=== PATIENT | male | born 1950 | race Caucasian/White ===

== ENCOUNTER 2020-02-26 17:27 | Inpatient (IN) ==
--- NOTE | 2020-02-26 17:44 | ERNOTE ---
Head Injury HPI - Narrative Date of Service: 02/26/20 - General Injury to: other - No injury. Has multitude of complaints. Time Seen by Provider: 02/26/20 17:30 Source: patient - Immun/Allergies/Home Medications Immunization: IMMUNIZATION HX Immunizations Up to Date No History of Influenza Vaccine No Hx Pneumococcal Vaccination No Allergies/Adverse Reactions: Allergies Allergy/AdvReac Type Severity Reaction Status Date / Time No Known Allergies Allergy Unverified 02/26/20 17:36 Home Medications: HOME MEDICATIONS NK 02/26/20 [Last Taken Unknown] - Pain Score Pain Score #1 Pain Score: 9 - History of Present Illness Narrative: 69 yr old with history of diabetes mellitus, erectile dysfunction, diabetic neuropathy, HLD and tobacco use presents with multiple complaints. Reports left sided neck pain for the past 4 days. States he awakened with this and originally thought he had slept wrong. However, this has progressively worsened. Rates his pain 9/10. Reports decreased ROM due to pain. Reports associated general weakness, fatigue, SOB with walking, headache, nausea and vomiting. Reports multiple emesis last nght. 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 Traveled to [place] by air 3 weeks ago. He was seen by [facility] yesterday and diagnosed with acute neck pain thought to be of musculoskeletal origin. He reports he is feeling much worse and is concerned about the possibility of meningitis. He does not take any medications for his diabetes because he doesn't like how they made him feel. Occurred: other - 4 days Method of Injury: Reports: unknown, other - woke with Associated Symptoms: Reports: shortness of breath - with walking , neck pain, weakness, loss of appetite, nausea, vomiting. Denies: fever/chills Review of Systems - Review of Systems Constitutional: Present: weakness, fatigue, decreased activity level. Absent: fever, chills EYE: Present: no symptoms reported ENT: Present: no symptoms reported Respiratory: Present: shortness of breath - with ambulation . Absent: cough, wheezing Cardiology: Absent: chest pain Gastrointestinal/Abdominal: Present: nausea, vomiting, eating less, drinking less Genitourinary: Absent: frequency, pain, dysuria Musculoskeletal: Present: muscle pain - Generalized muscle aching , neck pain - left sided Skin: Present: no symptoms reported Neurological: Present: headache, weakness Endocrine: Present: no symptoms reported Hematologic/Lymphatic: Present: no symptoms reported Psych: Present: anxiety All Other Systems: All systems neg except as marked Medical History (Last Updated 02/26/20 @ 21:16 by MARCELINA Crowe) Erectile dysfunction Hyperlipemia Neuropathy, lumbosacral plexus Type 2 diabetes mellitus Surgical History: Surgical History (Last Updated 02/26/20 @ 21:17 by MARCELINA Crowe) History of appendectomy History of back surgery History of laminectomy Hx of tonsillectomy Family History: Family History (Last Reviewed 02/26/20 @ 18:20 by MARCELINA Crowe) Other No pertinent family history Social History: (Last Reviewed 02/26/20 @ 18:20 by MARCELINA Crowe) Tobacco: Smoking Status: Current some day smoker tobacco type: cigars Alcohol: alcohol intake frequency: holiday/special occasion Substance Use: substance use type: does not use Physical Exam - Physical Exam General Appearance: Present: wd/wn, alert, no apparent distress Head Exam: Present: normal inspection, no evidence of injury Eye Exam: Normal inspection: bilateral, PERRL: bilateral, EOMI: bilateral Ears, Nose, Throat: Present: normal ENT inspection, normal pharynx, dry mucous membranes Neck: Present: tender lateral - tenderness to the paraspinal muscles on the left side, other - ROM decreased in all directions. No meningeal signs. Brudinzki and Kernig's signs negative Respiratory: Present: no respiratory distress, normal breath sounds, no accessory muscle use, lungs clear Cardiovascular/Chest: Present: no murmur, normal peripheral pulses, tachycardia Gastrointestinal/Abdominal: Present: normal bowel sounds, nontender, nond istended, soft Back Exam: Present: normal inspection, normal range of motion Extremity Exam: Present: normal inspection, non-tender, normal range of motion, no edema Neurological Exam: Present: alert, oriented, normal mood/affect, no motor/sensory deficits Skin Exam: Present: normal color, warm/dry Progress - Results and Orders Patient's Lab Results:: I have reviewed the patient's lab results. Results and Orders: Laboratory Tests 02/26/20 02/26/20 18:13 18:13 WBC 10.8 H RBC 4.96 Hgb 15.3 Hct 45.5 Plt Count 205 Immature Gran % (Auto) 0.70 H Immature Gran # (Auto) 0.08 H Neutrophils % 85.5 H Lymphocytes % 2.9 L Monocytes % 10.7 H Eosinophils % 0.0 Basophils % 0.2 Nucleated RBC % 0.0 Neutrophils # 9.3 H Lymphocytes # 0.31 L Monocytes # 1.2 H Absolute Basophils 0.0 Influenza Type A Ag Negative Influenza Type B Ag Negative Laboratory Tests 02/26/20 02/26/20 18:13 18:13 Sodium 133 Potassium 4.5 Chloride 96 L Carbon Dioxide 21.2 L Anion Gap 20.3 H BUN 22 Creatinine 1.30 Est GFR (Non-Af Amer) 58 L Random Glucose 375 H Lactic Acid, Venous 1.7 Calcium 9.5 Total Bilirubin 0.5 AST 10 ALT 19 Alkaline Phosphatase 79 Total Protein 7.9 Albumin 3.3 L Laboratory Tests 02/26/20 18:13 C-Reactive Prot, Quant 16.5 H Laboratory Tests 02/26/20 18:54 pCO2 31.4 L pO2 72.2 L HCO3 15.1 L Total CO2 16.1 L Base Excess -10.1 L ABG pH 7.30 L ABG O2 Sat (Measured) 93.3 L Laboratory Tests 02/26/20 20:22 Urine Color Yellow Urine Appearance Clear Urine pH 6.0 Ur Specific [place] 1.025 Urine Protein 30 H Urine Glucose (UA) >=1000 H Urine Ketones Large Urine Blood 25 H Urine Nitrate Negative Urine Bilirubin 1 H Urine Ictotest Negative Prot Sulfosalicylic Acd 1+ Urine Urobilinogen Normal Ur Leukocyte Esterase Negative Urine RBC 0-5 Urine WBC None seen Ur Epithelial Cells 0-5 Urine Bacteria None seen Urine Culture Comments No culture indicated Laboratory Tests 02/26/20 19:45 Chlamy pneumoniae PCR Not detected Adenovirus (PCR) Not detected B. pertussis DNA (PCR) Not detected Coronavirus OC43 (PCR) Not detected Coronavirus HKU1 (PCR) Not detected Coronavirus 229E (PCR) Not detected Coronavirus NL63 (PCR) Not detected Human Metapneumovir PCR Not detected Influenza A (H1) PCR Not detected Influenza A (H1N1) PCR Not detected Influenza A (H3) PCR Not detected Influenza B (RT-PCR) Not detected M. pneumoniae (PCR) Not detected Parainfluenza 1 (PCR) Not detected Parainfluenza 2 (PCR) Not detected Parainfluenza 3 (PCR) Not detected Parainfluenza 4 (PCR) Not detected RSV (PCR) Not detected Rhinovirus (PCR) Not detected Laboratory Tests 02/26/20 21:10 Sodium 135 Potassium 4.4 Chloride 101 Carbon Dioxide 22.4 L Anion Gap 16.0 H BUN 22 Creatinine 1.12 Random Glucose 328 H Calcium 8.7 - Vital Signs Patient's Vital Signs:: I have reviewed the patient's vital signs. Vital Signs: Vital Signs 02/26/20 17:28 Temperature 36.7 C Pulse Rate 116 H Respiratory Rate 18 Blood Pressure 135/90 H O2 Sat by Pulse Oximetry 97 - Progress/Reassessment Chief Complaint: Neck Pain/Injury Progress Note-Subjective: 02/26/20 21:39 Test results reviewed with patient. He is feeling better after the treatment modalities in the ER. Etiology and treatment plan as well as admission discussed. Since he has a possible pending admission I did review with [facility] as to whether they wanted Covid - 19 testing performed. We reviewed his case and he does not meet the criteria to be swabbed. His travel was over two weeks ago. He does not have any significant respiratory symptoms. No cough and although his temp is 37.4 that does not meet the criteria for fever. We also have a cause for his complaints, so he will not be swabbed. Last accu check was 280. Case staffed with Dr. Holland who graciously accepted his care. 02/26/20 22:06 Plan - Plan Plan: Admit to the floor Departure Clinical Impression: DKA (diabetic ketoacidoses) Qualifiers: Diabetes mellitus type: other specified (including UCHE) Diabetes mellitus com plication detail: without coma Qualified Code(s): E13.10 - Other specified diabetes mellitus with ketoacidosis without coma - Departure Disposition: Still a patient Condition: Good Referrals: Fabian Barth MD [Primary Care Provider] -
[2020-02-26] MEDS ORDERED: NORMAL SALINE 1,000 ML IV ONE ×3 (18:04→21:14)
[2020-02-26] MEDS ORDERED: ONDANSETRON HCL/PF 2 MG/ML VIAL IV ONE (18:05)
[2020-02-26] MEDS ORDERED: KETOROLAC TROMETHAMINE 30 MG/ML VIAL IV ONE (18:05)
[2020-02-26 18:19] LABS: Hematocrit 45.5 % (42.0-52.0); Hemoglobin 15.3 gm/dL (13.5-18.0); Mean Cell Volume 91.7 fl (78-100); Mean Corpuscular Hemoglobin 30.8 pg (27-31); Mean Corpuscular Hgb Conc 33.6 g/dl (32-36); Mean Platelet Volume 9.5 fl (8-11.3); Neutrophil # 9.3 K/mm3 (1.3-6.0); Neutrophil % 85.5 % (42-75.0); Platelet Count 205 K/mm3 (150-450); Red Blood Count 4.96 M/mm3 (4.7-6.0); Red Cell Distribution Width 12.2 % (11.5-14.0); White Blood Count 10.8 K/mm3 (4.0-10.5)
[2020-02-26 18:40] LABS: Albumin * 3.3 gm/dl (3.4-5.0); Anion Gap 20.3 mmol/L (6.8-13.8); BUN/Creatinine Ratio 16.9 (9.0-21.6); Bilirubin, Total 0.5 mg/dL (0.0-1.1); Ca. Corrected For Albumin 9.7 mg/dL (8.4-10.2); Calcium * 9.5 mg/dL (7.9-10.9); Carbon Dioxide 21.2 mmol/L (24-32.6); Potassium 4.5 mmol/L (3.4-4.6); Total Protein 7.9 gm/dL (6.2-8.2)
[2020-02-26] MEDS ORDERED: MORPHINE SULFATE 2 MG/ML DISP.SYRIN IV ONE (18:46)
[2020-02-26 18:53] LABS: CRP 16.5 mg/dL (0.0-0.9)
[2020-02-26] MEDS ORDERED: INSULIN REGULAR, HUMAN 100 UNITS/ML VIAL SC ONE ×2 (18:54→20:47)
[2020-02-26 20:27] LABS: Urine Bilirubin 1 mg/dl (NEGATIVE); Urine Blood 25 /ul (NEGATIVE); Urine Ketone Large mg/dL (NEGATIVE); Urine Nitrite Negative (NEGATIVE); Urine Protein 30 mg/dL (NEGATIVE); Urine Specific Gravity 1.025 SP.GR. (1.005-1.030); Urine Urobilinogen Normal (NORMAL)
[2020-02-26 20:46] LABS: Urine Appearance Clear (CLEAR); Urine Color Yellow; Urine WBC None Seen /hpf (0-5)
[2020-02-26 20:47] LABS: Urine Bacteria None Seen; Urine RBC 0-5 /hpf (0-5)
[2020-02-26 21:25] LABS: BUN/Creatinine Ratio 19.6 (9.0-21.6); Calcium * 8.7 mg/dL (7.9-10.9); Carbon Dioxide 22.4 mmol/L (24-32.6); Estimated Creat Clear 70.3; Potassium 4.4 mmol/L (3.4-4.6)
[2020-02-26] MEDS ORDERED: INSULIN REGULAR, HUMAN 100 UNITS in NORMAL SALINE 100 ML IV PRN ×2 (21:59)
--- NOTE | 2020-02-26 23:05 | HP ---
Chief Complaint - Chief Complaint Date of Service: 02/26/20 Time of Service: 23:04 Chief Complaint: Neck pain, nausea with vomiting History of Present Illness: Gee is a 69 yo male with PMH of DMII that presents to the [facility] ER with reports of neck pain, fatigue, nausea, and vomiting. He reports for the last week he has been having progressive neck pain with loss of appetite, nausea, and vomiting. He has been doing a lot of traveling lately including [facility] in [place] in December, [place] in January, and [place] earlier this month. He denies any known injury to his neck. He was seen at [facility] recently and diagnosed with neck strain and given muscle relaxers. He reports this has not helped. He denies cough. He reports some shortness of breath in the morning. He admits to diabetes but does not take medication because of side effects. He admits to not eating or drinking well lately. Medical History (Last Reviewed 02/26/20 @ 23:33 by Flores Parsons RN) Erectile dysfunction Hyperlipemia Neuropathy, lumbosacral plexus Type 2 diabetes mellitus Surgical History: Surgical History (Last Reviewed 02/26/20 @ 23:33 by Flores Parsons RN) History of appendectomy History of back surgery History of laminectomy Hx of tonsillectomy Family History: Family History (Last Reviewed 02/26/20 @ 23:33 by Flores Parsons RN) Other No pertinent family history Social History: (Last Reviewed 02/26/20 @ 23:33 by Flores Parsons RN) Tobacco: Smoking Status: Current some day smoker tobacco type: cigars Alcohol: alcohol intake frequency: holiday/special occasion Substance Use: substance use type: does not use Review Of Systems (GEN) - Review of Systems Generalized/Overall Review: Present: Weakness. Absent: Chills, Fever EENTM: Present: No Symptoms Reported Respiratory: Present: Shortness of Breath. Absent: Cough Cardiac: Absent: Chest Pain, Edema Abdominal: Present: Nausea, Vomiting Genitourinary: Present: No Symptoms Reported Musculoskeletal: Present: Neck Pain. Absent: Joint Pain Neurological: Absent: Headache, Numbness Skin: Absent: Lesions, Rash Endocrine: Absent: Intolerance to Cold, Intolerance to Heat Immunizations: IMMUNIZATION HX Immunizations Up to Date No History of Influenza Vaccine No Hx Pneumococcal Vaccination No Allergies/Adverse Reactions: Allergies Allergy/AdvReac Type Severity Reaction Status Date / Time No Known Allergies Allergy Unverified 02/26/20 17:36 Home Medications: HOME MEDICATIONS NK 02/26/20 [Last Taken Unknown] Exam - Exam Vital Signs: Vital Signs - Last Taken Temp 37.4 C 02/26/20 21:00 Pulse 102 H 02/26/20 21:53 Resp 16 02/26/20 21:53 BP 152/80 H 02/26/20 21:53 Pulse Ox 95 02/26/20 21:53 Constitutional: Present: Alert, Oriented x3, Cooperative ENT Exam: Present: hearing grossly normal Eye Exam: bilateral eye: normal inspection Respiratory: Present: lungs clear, normal breath sounds Cardiovascular/Chest: Present: no murmur, tachycardia Abdomen: Present: Normal bowel sounds, soft, nontender, nondistended Skin Exam: Present: normal color, warm/dry, no cyanosis Appearance: Present: appropriate appearance, appropriate insight Eye contact: Present: cooperative, good eye contact, normal speech Thoughts: Present: normal thought pattern, no apparent hallucination Diagnostic Studies: Abnormal Lab Results 02/26/20 02/26/20 02/26/20 Range/Units 18:13 18:13 18:13 WBC 10.8 H (4.0-10.5) K/mm3 Immature Gran % (Auto) 0.70 H (0.001-0.429) % Immature Gran # (Auto) 0.08 H (0.000-0.0310) K/mm3 Neutrophils % 85.5 H (42-75.0) % Lymphocytes % 2.9 L (20-51) % Monocytes % 10.7 H (0.0-9) % Neutrophils # 9.3 H (1.3-6.0) K/mm3 Lymphocytes # 0.31 L (1.5-3.5) k/mm3 Monocytes # 1.2 H (0.0-1.0) k/mm3 pCO2 (35.0-48.0) mmHg pO2 (83.0-108.0) mmHg HCO3 (21.0-28.0) mmol/L Total CO2 (19.0-24.0) mmol/L Base Excess (-2.0-3.0) mmol/L ABG pH (7.35-7.45) ABG O2 Sat (Measured) (94.0-98.0) % Chloride 96 L (97-106) mmol/L Carbon Dioxide 21.2 L (24-32.6) mmol/L Anion Gap 20.3 H (6.8-13.8) mmol/L Est GFR (Non-Af Amer) 58 L (60-130) mL/min Random Glucose 375 H (70-110) mg/dL C-Reactive Prot, Quant 16.5 H (0.0-0.9) mg/dL Albumin 3.3 L (3.4-5.0) gm/dl Urine Protein (NEGATIVE) mg/dL Urine Glucose (UA) (NEGATIVE) mg/dL Urine Blood (NEGATIVE) /ul Urine Bilirubin (NEGATIVE) mg/dl Serum Ketones Positive - 20mg/dl H (NEGATIVE) 02/26/20 02/26/20 02/26/20 Range/Units 18:54 20:22 21:10 WBC (4.0-10.5) K/mm3 Immature Gran % (Auto) (0.001-0.429) % Immature Gran # (Auto) (0.000-0.0310) K/mm3 Neutrophils % (42-75.0) % Lymphocytes % (20-51) % Monocytes % (0.0-9) % Neutrophils # (1.3-6.0) K/mm3 Lymphocytes # (1.5-3.5) k/mm3 Monocytes # (0.0-1.0) k/mm3 pCO2 31.4 L (35.0-48.0) mmHg pO2 72.2 L (83.0-108.0) mmHg HCO3 15.1 L (21.0-28.0) mmol/L Total CO2 16.1 L (19.0-24.0) mmol/L Base Excess -10.1 L (-2.0-3.0) mmol/L ABG pH 7.30 L (7.35-7.45) ABG O2 Sat (Measured) 93.3 L (94.0-98.0) % Chloride (97-106) mmol/L Carbon Dioxide 22.4 L (24-32.6) mmol/L Anion Gap 16.0 H (6.8-13.8) mmol/L Est GFR (Non-Af Amer) (60-130) mL/min Random Glucose 328 H (70-110) mg/dL C-Reactive Prot, Quant (0.0-0.9) mg/dL Albumin (3.4-5.0) gm/dl Urine Protein 30 H (NEGATIVE) mg/dL Urine Glucose (UA) >=1000 H (NEGATIVE) mg/dL Urine Blood 25 H (NEGATIVE) /ul Urine Bilirubin 1 H (NEGATIVE) mg/dl Serum Ketones (NEGATIVE) Laboratory Results WBC 10.8 K/mm3 (4.0-10.5) H 02/26/20 18:13 RBC 4.96 M/mm3 (4.7-6.0) 02/26/20 18:13 Hgb 15.3 gm/dL (13.5-18.0) 02/26/20 18:13 Hct 45.5 % (42.0-52.0) 02/26/20 18:13 MCV 91.7 fl (78-100) 02/26/20 18:13 MCH 30.8 pg (27-31) 02/26/20 18:13 MCHC 33.6 g/dl (32-36) 02/26/20 18:13 RDW 12.2 % (11.5-14.0) 02/26/20 18:13 Plt Count 205 K/mm3 (150-450) 02/26/20 18:13 MPV 9.5 fl (8-11.3) 02/26/20 18:13 Immature Gran % (Auto) 0.70 % (0.001-0.429) H 02/26/20 18:13 Immature Gran # (Auto) 0.08 K/mm3 (0.000-0.0310) H 02/26/20 18:13 Neutrophils % 85.5 % (42-75.0) H 02/26/20 18:13 Lymphocytes % 2.9 % (20-51) L 02/26/20 18:13 Monocytes % 10.7 % (0.0-9) H 02/26/20 18:13 Eosinophils % 0.0 % (0.0-3.0) 02/26/20 18:13 Basophils % 0.2 % (0.0-1.0) 02/26/20 18:13 Nucleated RBC % 0.0 k/mm3 (0-1) 02/26/20 18:13 Neutrophils # 9.3 K/mm3 (1.3-6.0) H 02/26/20 18:13 Lymphocytes # 0.31 k/mm3 (1.5-3.5) L 02/26/20 18:13 Monocytes # 1.2 k/mm3 (0.0-1.0) H 02/26/20 18:13 Eosinophils # 0.0 k/mm3 (0.0-0.7) 02/26/20 18:13 Absolute Basophils 0.0 k/mm3 (0.0-0.1) 02/26/20 18:13 pCO2 31.4 mmHg (35.0-48.0) L 02/26/20 18:54 pO2 72.2 mmHg (83.0-108.0) L 02/26/20 18:54 HCO3 15.1 mmol/L (21.0-28.0) L 02/26/20 18:54 Total CO2 16.1 mmol/L (19.0-24.0) L 02/26/20 18:54 Base Excess -10.1 mmol/L (-2.0-3.0) L 02/26/20 18:54 ABG pH 7.30 (7.35-7.45) L 02/26/20 18:54 ABG O2 Sat (Measured) 93.3 % (94.0-98.0) L 02/26/20 18:54 Sodium 135 mmol/L (132-142) 02/26/20 21:10 Plasma Sodium 139 mmol/L (130-142) 02/26/20 21:10 Potassium 4.4 mmol/L (3.4-4.6) 02/26/20 21:10 Chloride 101 mmol/L (97-106) 02/26/20 21:10 Carbon Dioxide 22.4 mmol/L (24-32.6) L 02/26/20 21:10 Anion Gap 16.0 mmol/L (6.8-13.8) H 02/26/20 21:10 BUN 22 mg/dL (6-23) 02/26/20 21:10 Creatinine 1.12 mg/dL (0.4-1.4) 02/26/20 21:10 Est GFR (Non-Af Amer) 69 mL/min (60-130) 02/26/20 21:10 BUN/Creatinine Ratio 19.6 (9.0-21.6) 02/26/20 21:10 Random Glucose 328 mg/dL (70-110) H 02/26/20 21:10 Lactic Acid, Venous 1.7 mmol/L (0.4-2.0) 02/26/20 18:13 Calcium 8.7 mg/dL (7.9-10.9) 02/26/20 21:10 Calcium Adj for Albumin 9.7 mg/dL (8.4-10.2) 02/26/20 18:13 Total Bilirubin 0.5 mg/dL (0.0-1.1) 02/26/20 18:13 AST 10 U/L (0-48) 02/26/20 18:13 ALT 19 U/L (19-67) 02/26/20 18:13 Alkaline Phosphatase 79 U/L (50-170) 02/26/20 18:13 C-Reactive Prot, Quant 16.5 mg/dL (0.0-0.9) H 02/26/20 18:13 Total Protein 7.9 gm/dL (6.2-8.2) 02/26/20 18:13 Albumin 3.3 gm/dl (3.4-5.0) L 02/26/20 18:13 Urine Color Yellow 02/26/20 20:22 Urine Appearance Clear (CLEAR) 02/26/20 20:22 Urine pH 6.0 pH (5.0-7.0) 02/26/20 20:22 Ur Specific [place] 1.025 SP.GR. (1.005-1.030) 02/26/20 20:22 Urine Protein 30 mg/dL (NEGATIVE) H 02/26/20 20:22 Urine Glucose (UA) >=1000 mg/dL (NEGATIVE) H 02/26/20 20:22 Urine Ketones Large mg/dL (NEGATIVE) 02/26/20 20:22 Urine Blood 25 /ul (NEGATIVE) H 02/26/20 20:22 Urine Nitrate Negative (NEGATIVE) 02/26/20 20:22 Urine Bilirubin 1 mg/dl (NEGATIVE) H 02/26/20 20:22 Urine Ictotest Negative (NEGATIVE) 02/26/20 20:22 Prot Sulfosalicylic Acd 1+ mg/dL (0) 02/26/20 20:22 Urine Urobilinogen Normal EU/dl (NORMAL) 02/26/20 20:22 Ur Leukocyte Esterase Negative /ul (NEGATIVE) 02/26/20 20:22 Urine RBC 0-5 /hpf (0-5) 02/26/20 20:22 Urine WBC None seen /hpf (0-5) 02/26/20 20:22 Ur Epithelial Cells 0-5 /hpf (0-5) 02/26/20 20:22 Urine Bacteria None seen (NONE) 02/26/20 20:22 Urine Culture Comments No culture indicated 02/26/20 20:22 Serum Ketones Positive - 20mg/dl (NEGATIVE) H 02/26/20 18:13 Chlamy pneumoniae PCR Not detected (NotDetected) 02/26/20 19:45 Adenovirus (PCR) Not detected (NotDetected) 02/26/20 19:45 B. pertussis DNA (PCR) Not detected (NotDetected) 02/26/20 19:45 Coronavirus OC43 (PCR) Not detected (NotDetected) 02/26/20 19:45 Coronavirus HKU1 (PCR) Not detected (NotDetected) 02/26/20 19:45 Coronavirus 229E (PCR) Not detected (NotDetected) 02/26/20 19:45 Coronavirus NL63 (PCR) Not detected (NotDetected) 02/26/20 19:45 Human Metapneumovir PCR Not detected (NotDetected) 02/26/20 19:45 Influenza A (H1) PCR Not detected (NotDetected) 02/26/20 19:45 Influenza A (H1N1) PCR Not detected (NotDetected) 02/26/20 19:45 Influenza A (H3) PCR Not detected (NotDetected) 02/26/20 19:45 Influenza Type A Ag Negative (NEGATIVE) 02/26/20 18:13 Influenza Type B Ag Negative (NEGATIVE) 02/26/20 18:13 Influenza B (RT-PCR) Not detected (NotDetected) 02/26/20 19:45 M. pneumoniae (PCR) Not detected (NotDetected) 02/26/20 19:45 Parainfluenza 1 (PCR) Not detected (NotDetected) 02/26/20 19:45 Parainfluenza 2 (PCR) Not detected (NotDetected) 02/26/20 19:45 Parainfluenza 3 (PCR) Not detected (NotDetected) 02/26/20 19:45 Parainfluenza 4 (PCR) Not detected (NotDetected) 02/26/20 19:45 RSV (PCR) Not detected (NotDetected) 02/26/20 19:45 Rhinovirus (PCR) Not detected (NotDetected) 02/26/20 19:45 Assessment/Plan - Narrative Narrative: Gee is a 69 yo male with Diabetic Ketoacidosis with pH 7.30, serum ketones elevated, high anion gap metabolic acidosis. Will start on insulin drip, IV fluids, and monitor electrolytes. Will look for cause of DKA, other than noncompliance. Once anion gap and acidosis resolves will plan to start long acting insulin. Expect 2-3 days to correct. Will admit to acute inpatient statu s. Neck pain may be related to acidosis, if not improved will evaluate with imaging, even consider MRI to evaluate for discitis. - Assessment/Plan (1) DKA (diabetic ketoacidoses) Problem: Acute Qualifiers: Diabetes mellitus type: type 2 Diabetes mellitus complication detail: without coma Qualified Code(s): E11.10 - Type 2 diabetes mellitus with ketoacidosis without coma (2) Neck pain Problem: Acute
[2020-02-26] MEDS: POTASSIUM CHLORIDE 20 MEQ in NORMAL SALINE 1,000 ML IV SCH (23:19)
[2020-02-27 00:11] LABS: Albumin * 2.6 gm/dl (3.4-5.0); Anion Gap 13.3 mmol/L (6.8-13.8); BUN/Creatinine Ratio 16.8 (9.0-21.6); Bilirubin, Total 0.3 mg/dL (0.0-1.1); Ca. Corrected For Albumin 9.1 mg/dL (8.4-10.2); Calcium * 8.3 mg/dL (7.9-10.9); Carbon Dioxide 24.7 mmol/L (24-32.6); Total Protein 6.5 gm/dL (6.2-8.2)
[2020-02-27] MEDS ORDERED: INSULIN GLARGINE,HUM.REC.ANLOG 100 UNITS/ML VIAL SC ONE (01:11)
[2020-02-27] MEDS: POTASSIUM CHLORIDE 20 MEQ in NORMAL SALINE 1,000 ML IV SCH ×4 (01:24→15:01)
[2020-02-27 02:33] LABS: Anion Gap 12.6 mmol/L (6.8-13.8); Carbon Dioxide 25.5 mmol/L (24-32.6); Potassium 4.1 mmol/L (3.4-4.6)
[2020-02-27] MEDS: ACETAMINOPHEN 500 MG TABLET PO PRN ×2 (02:43→22:22)
[2020-02-27 04:04] LABS: Urine Appearance Clear (CLEAR); Urine Bacteria None Seen; Urine Bilirubin 1 mg/dl (NEGATIVE); Urine Blood 50 /ul (NEGATIVE); Urine Color Yellow; Urine Ketone 50 mg/dL (NEGATIVE); Urine Nitrite Negative (NEGATIVE); Urine Protein 30 mg/dL (NEGATIVE); Urine Specific Gravity 1.025 SP.GR. (1.005-1.030); Urine Urobilinogen Normal (NORMAL); Urine WBC None Seen /hpf (0-5)
[2020-02-27 04:33] LABS: Anion Gap 15.1 mmol/L (6.8-13.8); Carbon Dioxide 21.1 mmol/L (24-32.6); Potassium 4.2 mmol/L (3.4-4.6)
[2020-02-27 06:48] LABS: Carbon Dioxide 21.5 mmol/L (24-32.6); Potassium 4.5 mmol/L (3.4-4.6)
[2020-02-27 08:31] LABS: Anion Gap 15.9 mmol/L (6.8-13.8); Carbon Dioxide 22.5 mmol/L (24-32.6); Potassium 4.4 mmol/L (3.4-4.6)
[2020-02-27] MEDS ORDERED: INSULIN REGULAR, HUMAN 100 UNITS in NORMAL SALINE 100 ML IV PRN ×2 (09:40)
[2020-02-27] MEDS: VANCOMYCIN/WATER FOR INJ (PEG) 1 GM/200 ML BAG IV SCH ×2 (10:35→22:13)
[2020-02-27] MEDS: MORPHINE SULFATE 2 MG/ML DISP.SYRIN IV PRN ×2 (15:08→18:00)
[2020-02-27 15:18] LABS: Anion Gap 13.3 mmol/L (6.8-13.8); BUN/Creatinine Ratio 20.7 (9.0-21.6); Calcium * 8.7 mg/dL (7.9-10.9); Carbon Dioxide 23.4 mmol/L (24-32.6); Estimated Creat Clear 90.6; Potassium 3.7 mmol/L (3.4-4.6)
[2020-02-27 17:56] LABS: Anion Gap 15.1 mmol/L (6.8-13.8); Calcium * 8.5 mg/dL (7.9-10.9); Carbon Dioxide 23.7 mmol/L (24-32.6); Estimated Creat Clear 98.5; Potassium 3.8 mmol/L (3.4-4.6)
[2020-02-27] MEDS ORDERED: POTASSIUM CHLORIDE 20 MEQ in DEXTROSE 5%-0.5 NORMAL SALINE 990 ML IV SCH (18:30)
[2020-02-27 21:26] LABS: Hematocrit 38.3 % (42.0-52.0); Hemoglobin 13.1 gm/dL (13.5-18.0); Mean Corpuscular Hemoglobin 31.1 pg (27-31); Mean Corpuscular Hgb Conc 34.2 g/dl (32-36); Mean Platelet Volume 9.4 fl (8-11.3); Neutrophil # 8.4 K/mm3 (1.3-6.0); Neutrophil % 82.7 % (42-75.0); Platelet Count 163 K/mm3 (150-450); Red Blood Count 4.21 M/mm3 (4.7-6.0); Red Cell Distribution Width 12.1 % (11.5-14.0); White Blood Count 10.1 K/mm3 (4.0-10.5)
[2020-02-27 21:40] LABS: Albumin * 2.3 gm/dl (3.4-5.0); Anion Gap 11.3 mmol/L (6.8-13.8); BUN/Creatinine Ratio 19.7 (9.0-21.6); Bilirubin, Total 0.3 mg/dL (0.0-1.1); Ca. Corrected For Albumin 9.2 mg/dL (8.4-10.2); Calcium * 8.2 mg/dL (7.9-10.9); Carbon Dioxide 24.4 mmol/L (24-32.6); Potassium 3.7 mmol/L (3.4-4.6); Total Protein 6.1 gm/dL (6.2-8.2)
--- NOTE | 2020-02-27 21:48 | PN ---
Subjective - Date and Time Seen Date: 02/27/20 Time: 11:30 Subjective Narrative: Gee reports continued neck pain. It is constant. Movement does not change his pain. He had fever overnight and pancultures obstained. Influenza negative, strep negative, respiratory viral panel negative. Chest xray showed no acute abnormality, Urine unremarkable other than elevated glucose. Blood cultures preliminarily growing gram positive cocci in clusters. He denies any obvious sites of infection. When asked about skin sores he does report a chronic bulla on his neck that he has been seeing dermatology for. He does scratch at that occassionally. He also reports an ulcer on the bottom up his left 2nd toe where he was cutting a callus back too deep about 3 weeks ago. He reports that healed up and has not been draining or causing pain. Objective - Vitals Vitals: Last Vital Signs Temp 37.5 C 02/27/20 20:22 Pulse 118 H 02/27/20 20:22 Resp 18 02/27/20 20:22 BP 140/85 02/27/20 20:22 Pulse Ox 92 L 02/27/20 20:22 - Abnormal Lab Findings Abnormal Lab Findings: Abnormal Lab Results 02/26/20 02/27/20 02/27/20 Range/Units 23:45 03:56 04:20 RBC (4.7-6.0) M/mm3 Hgb (13.5-18.0) gm/dL Hct (42.0-52.0) % MCH (27-31) pg Immature Gran % (Auto) (0.001-0.429) % Immature Gran # (Auto) (0.000-0.0310) K/mm3 Neutrophils % (42-75.0) % Lymphocytes % (20-51) % Monocytes % (0.0-9) % Neutrophils # (1.3-6.0) K/mm3 Lymphocytes # (1.5-3.5) k/mm3 Monocytes # (0.0-1.0) k/mm3 Carbon Dioxide 21.1 L (24-32.6) mmol/L Anion Gap 15.1 H (6.8-13.8) mmol/L Random Glucose 240 H (70-110) mg/dL ALT 17 L (19-67) U/L Total Protein (6.2-8.2) gm/dL Albumin 2.6 L (3.4-5.0) gm/dl Urine Protein 30 H (NEGATIVE) mg/dL Urine Glucose (UA) >=1000 H (NEGATIVE) mg/dL Urine Blood 50 H (NEGATIVE) /ul Urine Bilirubin 1 H (NEGATIVE) mg/dl Urine RBC 10-25 H (0-5) /hpf 02/27/20 02/27/20 02/27/20 Range/Units 06:35 08:12 15:05 RBC (4.7-6.0) M/mm3 Hgb (13.5-18.0) gm/dL Hct (42.0-52.0) % MCH (27-31) pg Immature Gran % (Auto) (0.001-0.429) % Immature Gran # (Auto) (0.000-0.0310) K/mm3 Neutrophils % (42-75.0) % Lymphocytes % (20-51) % Monocytes % (0.0-9) % Neutrophils # (1.3-6.0) K/mm3 Lymphocytes # (1.5-3.5) k/mm3 Monocytes # (0.0-1.0) k/mm3 Carbon Dioxide 21.5 L 22.5 L 23.4 L (24-32.6) mmol/L Anion Gap 16.0 H 15.9 H (6.8-13.8) mmol/L Random Glucose (70-110) mg/dL ALT (19-67) U/L Total Protein (6.2-8.2) gm/dL Albumin (3.4-5.0) gm/dl Urine Protein (NEGATIVE) mg/dL Urine Glucose (UA) (NEGATIVE) mg/dL Urine Blood (NEGATIVE) /ul Urine Bilirubin (NEGATIVE) mg/dl Urine RBC (0-5) /hpf 02/27/20 02/27/20 02/27/20 Range/Units 17:41 21:20 21:20 RBC 4.21 L (4.7-6.0) M/mm3 Hgb 13.1 L (13.5-18.0) gm/dL Hct 38.3 L (42.0-52.0) % MCH 31.1 H (27-31) pg Immature Gran % (Auto) 0.70 H (0.001-0.429) % Immature Gran # (Auto) 0.07 H (0.000-0.0310) K/mm3 Neutrophils % 82.7 H (42-75.0) % Lymphocytes % 4.5 L (20-51) % Monocytes % 11.8 H (0.0-9) % Neutrophils # 8.4 H (1.3-6.0) K/mm3 Lymphocytes # 0.46 L (1.5-3.5) k/mm3 Monocytes # 1.2 H (0.0-1.0) k/mm3 Carbon Dioxide 23.7 L (24-32.6) mmol/L Anion Gap 15.1 H (6.8-13.8) mmol/L Random Glucose 114 H D (70-110) mg/dL ALT 18 L (19-67) U/L Total Protein 6.1 L (6.2-8.2) gm/dL Albumin 2.3 L (3.4-5.0) gm/dl Urine Protein (NEGATIVE) mg/dL Urine Glucose (UA) (NEGATIVE) mg/dL Urine Blood (NEGATIVE) /ul Urine Bilirubin (NEGATIVE) mg/dl Urine RBC (0-5) /hpf - Exam Constitutional: Present: Alert, Oriented x3, Cooperative ENT Exam: Present: hearing grossly normal Respiratory: Present: lungs clear, normal breath sounds Cardiovascular/Chest: Present: regular rate, rhythm, no murmur Abdomen: Present: Normal bowel sounds, soft, nontender, nondistended Skin Exam: Present: other - quarter sized superficial ulcer on right neck, no surrounding erythema. Pad of left 2nd toe with healed ulcer. Appearance: Present: appropriate appearance, appropriate insight Eye contact: Present: cooperative, good eye contact, normal speech Thoughts: Present: normal thought pattern, no apparent hallucination Assessment/Plan Plan Narrative: Gee appears to have Diabetic Ketoacidosis secondary to Gram Positive cocci bacteremia. He was treated on insulin drip and fluids for DKA and acidosis corrected. Insulin drip was stopped and started on lantus at 10 units last night. Repeat BMP this morning shows reoccurance of metabolic acidosis with high anion gap and he was restarted on insulin Drip. He also developed a fever and an extensive workup was completed to look for a source. Bloodwork, urine, chest xray, influenza and strep swabs, respiratory viral panel were all negative until blood cultures came back positive this morning for gram positive cocci. He was started on vancomycin to cover for possible MRSA. Will await culture final. Likely staph, the source could be from skin, either neck or toe ulcer. There is no evidence at those sites to indicate cellulitis or deeper infection but this may be the origination. His neck pain concerns me for the possibility of discitis or osteo of the vertebrae. Will get MRI with contrast of his neck tomorrow. - Problems/Diagnosis (1) DKA (diabetic ketoacidoses) Problem: Acute Qualifiers: Diabetes mellitus type: type 2 Diabetes mellitus complication detail: without coma Qualified Code(s): E11.10 - Type 2 diabetes mellitus with ketoacidosis without coma (2) Bacteremia due to Gram-positive bacteria Problem: Acute (3) Neck pain Problem: Acute
[2020-02-27] MEDS: INSULIN GLARGINE,HUM.REC.ANLOG 100 UNITS/ML VIAL SC SCH (22:23)
[2020-02-28 06:01] LABS: Hemoglobin 12.9 gm/dL (13.5-18.0); Mean Cell Volume 91.3 fl (78-100); Mean Corpuscular Hemoglobin 30.2 pg (27-31); Mean Corpuscular Hgb Conc 33.1 g/dl (32-36); Mean Platelet Volume 9.4 fl (8-11.3); Neutrophil # 7.2 K/mm3 (1.3-6.0); Neutrophil % 77.6 % (42-75.0); Platelet Count 159 K/mm3 (150-450); Red Blood Count 4.27 M/mm3 (4.7-6.0); Red Cell Distribution Width 12.2 % (11.5-14.0); White Blood Count 9.3 K/mm3 (4.0-10.5)
[2020-02-28 06:17] LABS: Albumin * 2.2 gm/dl (3.4-5.0); Anion Gap 11.2 mmol/L (6.8-13.8); BUN/Creatinine Ratio 20.5 (9.0-21.6); Bilirubin, Total 0.4 mg/dL (0.0-1.1); Ca. Corrected For Albumin 9.3 mg/dL (8.4-10.2); Calcium * 8.2 mg/dL (7.9-10.9); Carbon Dioxide 27.3 mmol/L (24-32.6); Potassium 3.5 mmol/L (3.4-4.6); Total Protein 5.9 gm/dL (6.2-8.2)
[2020-02-28] MEDS: MORPHINE SULFATE 2 MG/ML DISP.SYRIN IV PRN (07:04)
[2020-02-28] MEDS: VANCOMYCIN/WATER FOR INJ (PEG) 1 GM/200 ML BAG IV SCH ×2 (09:37→23:01)
[2020-02-28] MEDS: INSULIN LISPRO 100 UNITS/ML VIAL SC SCH ×3 (11:33→21:52)
--- NOTE | 2020-02-28 11:48 | PN ---
Subjective - Date and Time Seen Date: 02/28/20 Time: 11:42 Subjective Narrative: Gee is feeling better today. He still reports neck pain at 6/10. Blood sugars have been well controlled. His acidosis has resolved, he is off the insulin drip, and eating a consistent carb diet. MRI of neck came back showing degenerative disease and spinal stenosis but no infectious process. Cultures are growing staph in the blood. Awaiting sensitivities. Objective - Vitals Vitals: Last Vital Signs Temp 36.9 C 02/28/20 10:00 Pulse 103 H 02/28/20 10:00 Resp 18 02/28/20 10:00 BP 141/89 02/28/20 10:00 Pulse Ox 94 02/28/20 10:00 - Abnormal Lab Findings Abnormal Lab Findings: Abnormal Lab Results 02/27/20 02/27/20 02/27/20 Range/Units 15:05 17:41 21:20 RBC 4.21 L (4.7-6.0) M/mm3 Hgb 13.1 L (13.5-18.0) gm/dL Hct 38.3 L (42.0-52.0) % MCH 31.1 H (27-31) pg Immature Gran % (Auto) 0.70 H (0.001-0.429) % Immature Gran # (Auto) 0.07 H (0.000-0.0310) K/mm3 Neutrophils % 82.7 H (42-75.0) % Lymphocytes % 4.5 L (20-51) % Monocytes % 11.8 H (0.0-9) % Neutrophils # 8.4 H (1.3-6.0) K/mm3 Lymphocytes # 0.46 L (1.5-3.5) k/mm3 Monocytes # 1.2 H (0.0-1.0) k/mm3 Carbon Dioxide 23.4 L 23.7 L (24-32.6) mmol/L Anion Gap 15.1 H (6.8-13.8) mmol/L Random Glucose (70-110) mg/dL ALT (19-67) U/L Total Protein (6.2-8.2) gm/dL Albumin (3.4-5.0) gm/dl 02/27/20 02/28/20 02/28/20 Range/Units 21:20 05:55 05:55 RBC 4.27 L (4.7-6.0) M/mm3 Hgb 12.9 L (13.5-18.0) gm/dL Hct 39.0 L (42.0-52.0) % MCH (27-31) pg Immature Gran % (Auto) (0.001-0.429) % Immature Gran # (Auto) 0.04 H (0.000-0.0310) K/mm3 Neutrophils % 77.6 H (42-75.0) % Lymphocytes % 7.2 L (20-51) % Monocytes % 14.4 H (0.0-9) % Neutrophils # 7.2 H (1.3-6.0) K/mm3 Lymphocytes # 0.67 L (1.5-3.5) k/mm3 Monocytes # 1.3 H (0.0-1.0) k/mm3 Carbon Dioxide (24-32.6) mmol/L Anion Gap (6.8-13.8) mmol/L Random Glucose 114 H D 135 H (70-110) mg/dL ALT 18 L 18 L (19-67) U/L Total Protein 6.1 L 5.9 L (6.2-8.2) gm/dL Albumin 2.3 L 2.2 L (3.4-5.0) gm/dl - Exam Constitutional: Present: Alert, Oriented x3, Cooperative Respiratory: Present: lungs clear, normal breath sounds Cardiovascular/Chest: Present: regular rate, rhythm, no murmur Abdomen: Present: Normal bowel sounds, soft, nontender, nondistended Assessment/Plan Plan Narrative: Neck pain appears to be musculoskeletal in nature, strain vs degenerative disc disease vs spinal/neuroforaminal stenosis. Will treat with oral pain medications. Discontinue morphine and start hydrocodone. Inflammation may be exacerbated but his acute illness of DKA and bacteremia. Staph Bacteremia, cultures pending. Continue vancomycin until sensitivities show an oral alternative. Will need 2 weeks of antibiotics. DKA has resolved. Blood sugars controlled with insulin. Electrolytes and acidosis have been corrected and normalized. Continue to monitor sugars, electrolytes, and acid/base. Anticipate discharge to home tomorrow once I know what oral antibiotics to discharge him on, will continue IV vancomycin until then. - Problems/Diagnosis (1) DKA (diabetic ketoacidoses) Problem: Resolved Qualifiers: Diabetes mellitus type: type 2 Diabetes mellitus complication detail: without coma Qualified Code(s): E11.10 - Type 2 diabetes mellitus with ketoacidosis without coma (2) Bacteremia due to Gram-positive bacteria Problem: Acute (3) Neck pain Problem: Acute
[2020-02-28] MEDS: ACETAMINOPHEN 500 MG TABLET PO PRN (15:09)
[2020-02-28] MEDS: HYDROcodone/ACETAMINOPHEN 1 EACH TABLET PO PRN (20:54)
[2020-02-28] MEDS: INSULIN GLARGINE,HUM.REC.ANLOG 100 UNITS/ML VIAL SC SCH (20:56)
[2020-02-28] MEDS ORDERED: ONDANSETRON HCL/PF 2 MG/ML VIAL IV PRN (21:24)
[2020-02-28] MEDS ORDERED: VANCOMYCIN HCL LEVEL XX ONE (21:30)
[2020-02-29] MEDS: HYDROcodone/ACETAMINOPHEN 1 EACH TABLET PO PRN ×2 (01:43→07:16)
[2020-02-29 06:35] LABS: Hemoglobin 12.7 gm/dL (13.5-18.0); Mean Cell Volume 89.8 fl (78-100); Mean Corpuscular Hemoglobin 30.8 pg (27-31); Mean Corpuscular Hgb Conc 34.3 g/dl (32-36); Mean Platelet Volume 9.9 fl (8-11.3); Neutrophil # 6.5 K/mm3 (1.3-6.0); Neutrophil % 77.9 % (42-75.0); Platelet Count 168 K/mm3 (150-450); Red Blood Count 4.12 M/mm3 (4.7-6.0); Red Cell Distribution Width 11.9 % (11.5-14.0); White Blood Count 8.3 K/mm3 (4.0-10.5)
[2020-02-29 06:47] LABS: Albumin * 2.2 gm/dl (3.4-5.0); Anion Gap 11.1 mmol/L (6.8-13.8); BUN/Creatinine Ratio 18.7 (9.0-21.6); Bilirubin, Total 0.5 mg/dL (0.0-1.1); Ca. Corrected For Albumin 9.1 mg/dL (8.4-10.2); Carbon Dioxide 29.3 mmol/L (24-32.6); Potassium 3.4 mmol/L (3.4-4.6)
[2020-02-29] MEDS: INSULIN LISPRO 100 UNITS/ML VIAL SC SCH (07:11)
--- NOTE | 2020-02-29 09:51 | DS ---
(1) DKA (diabetic ketoacidoses) Problem: Resolved Qualifiers: Diabetes mellitus type: type 2 Diabetes mellitus complication detail: without coma Qualified Code(s): E11.10 - Type 2 diabetes mellitus with ketoacidosis without coma (2) Bacteremia due to Staphylococcus aureus without sepsis Problem: Acute (3) Cervical spinal stenosis Problem: Acute Date of Discharge:: 02/29/20 Hospital Course: Gee is a 69 yo male admitted for DKA. He initially presented to the ER with severe neck pain, but bloodwork showed elevated glucose, high anion gap metabolic acidosis, serum ketones, and pH of 7.3. He was admitted to inpatient, placed on insulin drip and fluids and had electrolytes and glucose monitored closely. Insulin drip and electrolytes were adjusted as needed. When the gap closed and acidosis resolved he was placed on SC insulin and an hour later the insulin drip was discontinued. Labs were continued to be monitored and the metabolic acidosis returned and the drip was restarted. Over the first night he had a fever without other symptoms. He was evaluated by Urine studies, bloodwork, chest xray, influenza and strep swab, and blood cultures. All testing came back negative initially. On the following morning the blood cultures came back showing preliminary growth of gram positive cocci in clusters. He was started on Vancomycin IV. DKA was continued to be treated and the gap again closed and acidosis resolved with fluids and IV insulin drip. He was once again started on SC insulin and the drip was discontinued an hour later. Glucose and electrolytes were continued to be monitored and he did well. Acidosis did not return. His SC insulin was adjusted. He stopped having fever. He was evaluated for source of bactermia and he had reported a sore on the bottom of his left second toe after he had trimmed a callus too much. He also reports a chronic ulcer on the right side of his neck that dermatology sees him for but this is relatively unchanged, although he does admit to picking at it. It is suspected that either of these two sites are the likely source of his bacteremia which ultimately grew staph aureus. He has been on a few days of vancomycin. With sensitivities back this will be discontinued and he will be discharged to home on oral bactrim for 2 weeks. During hospital course he had an MRI of his neck to evaluate his pain as I was concerned that with his bactermia he could have vertebral osteomyelitis, discitis, or an epidural abscess. MRI was negative for these but did show spinal and neuraminal stenosis. He was started on hydrocodone for the pain and this helped to improve his symptoms. He will be discharged to home today on insulin, bactrim for two weeks, and hydrocodone to use prn for severe neck pain. Procedures Performed: none Results and Findings: Lab Pending Results 02/26/20 18:13: WBC 10.8 H, RBC 4.96, Hgb 15.3, Hct 45.5, MCV 91.7, MCH 30.8, MCHC 33.6, RDW 12.2, Plt Count 205, MPV 9.5, Immature Gran % (Auto) 0.70 H, Immature Gran # (Auto) 0.08 H, Neutrophils % 85.5 H, Lymphocytes % 2.9 L, Monocytes % 10.7 H, Eosinophils % 0.0, Basophils % 0.2, Nucleated RBC % 0.0, Neutrophils # 9.3 H, Lymphocytes # 0.31 L, Monocytes # 1.2 H, Eosinophils # 0.0, Absolute Basophils 0.0 02/26/20 18:13: Sodium 133, Plasma Sodium 137, Potassium 4.5, Chloride 96 L, Carbon Dioxide 21.2 L, Anion Gap 20.3 H, BUN 22, Creatinine 1.30, Est GFR (Non- Af Amer) 58 L, BUN/Creatinine Ratio 16.9, Random Glucose 375 H, Calcium 9.5, Calcium Adj for Albumin 9.7, Total Bilirubin 0.5, AST 10, ALT 19, Alkaline Phosphatase 79, C-Reactive Prot, Quant 16.5 H, Total Protein 7.9, Albumin 3.3 L 02/26/20 18:13: Lactic Acid, Venous 1.7 02/26/20 18:13: Influenza Type A Ag Negative, Influenza Type B Ag Negative 02/26/20 18:13: Serum Ketones Positive - 20mg/dl H 02/26/20 18:54: pCO2 31.4 L, pO2 72.2 L, HCO3 15.1 L, Total CO2 16.1 L, Base Excess -10.1 L, ABG pH 7.30 L, ABG O2 Sat (Measured) 93.3 L 02/26/20 19:45: Chlamy pneumoniae PCR Not detected, Adenovirus (PCR) Not detected, B. pertussis DNA (PCR) Not detected, Coronavirus OC43 (PCR) Not detected, Coronavirus HKU1 (PCR) Not detected, Coronavirus 229E (PCR) Not detected, Coronavirus NL63 (PCR) Not detected, Human Metapneumovir PCR Not detected, Influenza A (H1) PCR Not detected, Influenza A (H1N1) PCR Not dete cted, Influenza A (H3) PCR Not detected, Influenza B (RT-PCR) Not detected, M. pneumoniae (PCR) Not detected, Parainfluenza 1 (PCR) Not detected, Parainfluenza 2 (PCR) Not detected, Parainfluenza 3 (PCR) Not detected, Parainfluenza 4 (PCR) Not detected, RSV (PCR) Not detected, Rhinovirus (PCR) Not detected 02/26/20 20:22: Urine Color Yellow, Urine Appearance Clear, Urine pH 6.0, Ur Specific [place] 1.025, Urine Protein 30 H, Urine Glucose (UA) >=1000 H, Urine Ketones Large, Urine Blood 25 H, Urine Nitrate Negative, Urine Bilirubin 1 H, Urine Ictotest Negative, Prot Sulfosalicylic Acd 1+, Urine Urobilinogen Normal, Ur Leukocyte Esterase Negative, Urine RBC 0-5, Urine WBC None seen, Ur Epithelial Cells 0-5, Urine Bacteria None seen, Urine Culture Comments No culture indicated 02/26/20 21:10: Sodium 135, Plasma Sodium 139, Potassium 4.4, Chloride 101, Carbon Dioxide 22.4 L, Anion Gap 16.0 H, BUN 22, Creatinine 1.12, Est GFR (Non- Af Amer) 69, BUN/Creatinine Ratio 19.6, Random Glucose 328 H, Calcium 8.7 02/26/20 23:45: Sodium 137, Plasma Sodium 139, Potassium 4.0, Chloride 103, Carbon Dioxide 24.7, Anion Gap 13.3, BUN 20, Creatinine 1.19, Est GFR (Non-Af Amer) 64, BUN/Creatinine Ratio 16.8, Random Glucose 240 H, Calcium 8.3, Calcium Adj for Albumin 9.1, Total Bilirubin 0.3, AST 11, ALT 17 L, Alkaline Phosphatase 71, Total Protein 6.5, Albumin 2.6 L 02/27/20 02:25: Sodium 139, Potassium 4.1, Chloride 105, Carbon Dioxide 25.5, Anion Gap 12.6 02/27/20 02:36: Group A Strep Rapid Negative 02/27/20 03:56: Urine Color Yellow, Urine Appearance Clear, Urine pH 6.0, Ur Specific [place] 1.025, Urine Protein 30 H, Urine Glucose (UA) >=1000 H, Urine Ketones 50, Urine Blood 50 H, Urine Nitrate Negative, Urine Bilirubin 1 H, Urine Ictotest Negative, Prot Sulfosalicylic Acd 1+, Urine Urobilinogen Normal, Ur Leukocyte Esterase Negative, Urine RBC 10-25 H, Urine WBC None seen, Ur Epithelial Cells 0-5, Urine Bacteria None seen, Urine Culture Comments No culture indicated 02/27/20 04:20: Sodium 136, Potassium 4.2, Chloride 104, Carbon Dioxide 21.1 L, Anion Gap 15.1 H 02/27/20 06:35: Sodium 136, Potassium 4.5, Chloride 103, Carbon Dioxide 21.5 L, Anion Gap 16.0 H 02/27/20 08:12: Sodium 136, Potassium 4.4, Chloride 102, Carbon Dioxide 22.5 L, Anion Gap 15.9 H 02/27/20 15:05: Sodium 137, Plasma Sodium 137, Potassium 3.7, Chloride 104, C arbon Dioxide 23.4 L, Anion Gap 13.3, BUN 18, Creatinine 0.87, Est GFR (Non-Af Amer) 92 D, BUN/Creatinine Ratio 20.7, Random Glucose 106 D, Calcium 8.7 02/27/20 17:41: Sodium 138, Plasma Sodium 138, Potassium 3.8, Chloride 103, Carbon Dioxide 23.7 L, Anion Gap 15.1 H, BUN 16, Creatinine 0.80, Est GFR (Non- Af Amer) 102, BUN/Creatinine Ratio 20.0, Random Glucose 85, Calcium 8.5 02/27/20 21:20: WBC 10.1, RBC 4.21 L, Hgb 13.1 L, Hct 38.3 L, MCV 91.0, MCH 31.1 H, MCHC 34.2, RDW 12.1, Plt Count 163, MPV 9.4, Immature Gran % (Auto) 0.70 H, Immature Gran # (Auto) 0.07 H, Neutrophils % 82.7 H, Lymphocytes % 4.5 L, Monocytes % 11.8 H, Eosinophils % 0.0, Basophils % 0.3, Nucleated RBC % 0.0, Neutrophils # 8.4 H, Lymphocytes # 0.46 L, Monocytes # 1.2 H, Eosinophils # 0.0, Absolute Basophils 0.0 02/27/20 21:20: VBG pH 7.41 02/27/20 21:20: Sodium 135, Plasma Sodium 135, Potassium 3.7, Chloride 103, Carbon Dioxide 24.4, Anion Gap 11.3, BUN 15, Creatinine 0.76, Est GFR (Non-Af Amer) 108, BUN/Creatinine Ratio 19.7, Random Glucose 114 H D, Calcium 8.2, Calcium Adj for Albumin 9.2, Total Bilirubin 0.3, AST 19, ALT 18 L, Alkaline Phosphatase 63, Total Protein 6.1 L, Albumin 2.3 L 02/28/20 05:55: WBC 9.3, RBC 4.27 L, Hgb 12.9 L, Hct 39.0 L, MCV 91.3, MCH 30.2, MCHC 33.1, RDW 12.2, Plt Count 159, MPV 9.4, Immature Gran % (Auto) 0.40, Immature Gran # (Auto) 0.04 H, Neutrophils % 77.6 H, Lymphocytes % 7.2 L, Monocytes % 14.4 H, Eosinophils % 0.1, Basophils % 0.3, Nucleated RBC % 0.0, Neutrophils # 7.2 H, Lymphocytes # 0.67 L, Monocytes # 1.3 H, Eosinophils # 0.0, Absolute Basophils 0.0 02/28/20 05:55: VBG pH 7.40 02/28/20 05:55: Sodium 138, Plasma Sodium 139, Potassium 3.5, Chloride 103, Carbon Dioxide 27.3, Anion Gap 11.2, BUN 15, Creatinine 0.73, Est GFR (Non-Af Amer) 113, BUN/Creatinine Ratio 20.5, Random Glucose 135 H, Calcium 8.2, Calcium Adj for Albumin 9.3, Total Bilirubin 0.4, AST 19, ALT 18 L, Alkaline Phosphatase 75, Total Protein 5.9 L, Albumin 2.2 L 02/28/20 22:05: Vancomycin Trough 5.6 L 02/29/20 06:31: WBC 8.3, RBC 4.12 L, Hgb 12.7 L, Hct 37.0 L, MCV 89.8, MCH 30.8, MCHC 34.3, RDW 11.9, Plt Count 168, MPV 9.9, Immature Gran % (Auto) 0.50 H, Beryl ture Gran # (Auto) 0.04 H, Neutrophils % 77.9 H, Lymphocytes % 6.6 L, Monocytes % 14.5 H, Eosinophils % 0.1, Basophils % 0.4, Nucleated RBC % 0.0, Neutrophils # 6.5 H, Lymphocytes # 0.55 L, Monocytes # 1.2 H, Eosinophils # 0.0, Absolute Basophils 0.0 02/29/20 06:31: Sodium 134, Plasma Sodium 136, Potassium 3.4, Chloride 97, Carbon Dioxide 29.3, Anion Gap 11.1, BUN 14, Creatinine 0.75, Est GFR (Non-Af Amer) 110, BUN/Creatinine Ratio 18.7, Random Glucose 255 H D, Calcium 8.0, Calcium Adj for Albumin 9.1, Total Bilirubin 0.5, AST 23, ALT 30, Alkaline Phosphatase 118, Total Protein 6.0 L, Albumin 2.2 L Discharge Location: Home Disposition: Home self-care Condition: Good Discharge Activity: Activity as tolerated Discharge Diet: Consistent carbs Referrals: Fabian Barth MD [Primary Care Provider] - Chip Holland DO [Staff Physician] - One Week Problem Oriented Discharge Instructions to Patient/Family: Bacteremia, Diabetic Ketoacidosis Additional Patient Instructions (free text): Follow-up with Dr. Holland at discharge. He will be your new primary care provider. Call pharmacy in verbal order for Glucometer, testing supplies that are approved with insurance. Prescriptions (Any new or edited meds): Sulfamethoxazole/Trimethoprim [Bactrim Ds] 1 tab PO BID #28 tab Transmission Status: Pending to [facility] Insulin Aspart (Niacinamide) [Fiasp 100 Unit/ml Flextouch] 5 unit SQ AC #1 insuln.pen Transmission Status: Pending to [facility] Insulin Detemir [Levemir Flextouch] 20 unit SQ HS #1 insuln.pen Transmission Status: Pending to [facility] HYDROcodone/ACETAMINOPHEN [[place] 5-325] 1 ea PO Q3H PRN #30 tab PRN Reason: Moderate Pain (Pain Scale 4-6) Transmission Status: Sent to [facility] Complete Home Medications List: Complete Home Medication List: Acetaminophen [Tylenol] 1,000 mg PO Q6H PRN tab 02/29/20 HYDROcodone/ACETAMINOPHEN [[place] 5-325] 1 ea PO Q3H PRN #30 tab 02/29/20 Insulin Aspart (Niacinamide) [Fiasp 100 Unit/ml Flextouch] 5 unit SQ AC #1 insuln.pen 02/29/20 Insulin Detemir [Levemir Flextouch] 20 unit SQ HS #1 insuln.pen 02/29/20 Sulfamethoxazole/Trimethoprim [Bactrim Ds] 1 tab PO BID #28 tab 02/29/20
[2020-02-29] MEDS ORDERED: VANCOMYCIN/WATER FOR INJ (PEG) 1.5 GM/300 ML BAG IV SCH (10:00)
[2020-02-29 12:35] VITALS: BP 153/94
== END 2020-02-29 11:45 | disposition home or self-care (01) | DRG 871 ==
LOC: ER 17:27 → MS 22:04
PROVIDERS: ADMIT Family Medicine; ATTEND Family Medicine
CPT/HCPCS: 36415; 36600; 70030; 71020; 71046; 72156; 80048; 80051; 80053; 80202; 81001; 82009; 82800; 82803; 83605; 85025; 86140; 87040; 87077; 87081; 87186; 87400; 87430; 87449; 87633; 96361; 96374; 96375; 99285; A9576; J2405